=== PATIENT | female | born 1990 | race Caucasian/White ===

== ENCOUNTER 2019-07-31 11:45 | Inpatient (IN) ==
[2019-07-31] MEDS ORDERED: BUTORPHANOL 2 MG/ML VIAL IV PRN (11:53)
[2019-07-31] MEDS ORDERED: ONDANSETRON 4 MG/2 ML VIAL IV PRN ×2 (11:53→22:08)
[2019-07-31] MEDS ORDERED: LACTATED RINGERS 1,000 ML IV SCH (12:00)
[2019-07-31] MEDS ORDERED: OXYTOCIN/LR 20 UNIT/1,000 ML BAG IV SCH (12:00)
[2019-07-31 12:37] LABS: Basophils # 0.1 10*3/uL (0.0-0.2); Basophils % 0.5 % (0.0-0.8); Eosinophils # 0.3 10*3/uL (0.0-0.87); Eosinophils % 3.5 % (0.00-10.9); Hematocrit 36.5 VOL% (35.7-47.0); Hemoglobin 12.4 GM/DL (12.0-16.0); Immature Granulocytes % 0.4 %; Immature Granulocytes Absolute 0.04 #; Lymphocytes # 1.3 10*3/uL (1.4-4.0); Lymphocytes % 14.5 % (21.3-54.2); Mean Corpuscular Volume 93.6 FL (87-102); Mean Platelet Volume 10.6 FL (9.6-12.0); Monocytes % 7.2 % (1.7-12.7); Neutrophils % 73.9 % (38.7-73.9); Platelet Count 215 T/CUMM (130-400); Red Cell Distribution Width 13.6 % (9.3-17.3); White Blood Count 9.2 T/CUMM (4-12)
[2019-07-31] MEDS ORDERED: FAMOTIDINE 20 MG/2 ML VIAL IV ONE (12:55)
[2019-07-31] MEDS ORDERED: diphenhydrAMINE 50 MG/1 ML VIAL IV PRN ×2 (12:55)
[2019-07-31] MEDS ORDERED: ePHEDrine 50 MG/ML AMP IV PRN (12:55)
[2019-07-31] MEDS ORDERED: PROMETHAZINE 25 MG/1 ML VIAL IM PRN (12:55)
[2019-07-31] MEDS ORDERED: CITRIC ACID/SODIUM CITRATE 30 ML UDCUP PO ONE (12:55)
[2019-07-31] MEDS ORDERED: LACTATED RINGERS 1,000 ML IV ONE (12:55)
[2019-07-31] MEDS ORDERED: NALOXONE 0.4 MG/ML VIAL IV PRN (12:55)
[2019-07-31] MEDS ORDERED: fentaNYL 2 MCG/ROPIV 0.2% EPID 100 ML EPIDURAL SCH (13:00)
[2019-07-31 14:23] LABS: Apearance,Urine CLEAR (Clear); Bilirubin,Urine Negative (Negative); Blood, Urine Negative (Negative); Glucose,Urine (UA) Negative (Negative); Ketones,Urine Negative (Negative); Mucus,Urine Many /LPF (Occasional); Nitrite,Urine Negative (Negative); Protein,Urine Negative; RBC,Urine <1 /HPF (0-4); Squamous Epithelial Cell,Urine Occasional /HPF (0-10); Urine Color Yellow (Yellow); Urine Specific Gravity 1.016 (1.001-1.035); Urine Urobilinogen < 2.0 EU/DL (0.2-1.0); WBC,Urine 1 /HPF (0-6)
[2019-07-31] MEDS ORDERED: LIDOCAINE 1% 50 ML VIAL ONE (19:21)
[2019-07-31] MEDS ORDERED: CARBOPROST TROMETHAMINE 250 MCG/ML AMP IM ONE (19:22)
[2019-07-31] MEDS ORDERED: METHYLERGONOVINE 0.2 MG/1 ML AMP ONE (19:22)
[2019-07-31] MEDS ORDERED: miSOPROStoL 200 MCG TABLET ONE (19:22)
[2019-07-31] MEDS ORDERED: BISACODYL 10 MG SUPP RECTAL PRN (22:08)
[2019-07-31] MEDS ORDERED: IBUPROFEN 800 MG TABLET PO PRN (22:08)
[2019-07-31] MEDS ORDERED: MEASLES/MUMPS/RUBELLA VACCINE 0.5 ML VIAL SUBCUT ONE (22:08)
[2019-07-31] MEDS ORDERED: HYDROCORTISONE 2.5% RECTAL CREAM 30 GM TUBE TOP PRN (22:08)
[2019-07-31] MEDS ORDERED: LANOLIN 50% CREAM 0.3 OZ TUBE TOP PRN (22:08)
[2019-07-31] MEDS ORDERED: OXYTOCIN/LR 20 UNIT/1,000 ML BAG IV ONE (22:08)
[2019-07-31] MEDS ORDERED: DIPH/TET/ACEL PERT BOOSTER VACCINE 0.5 ML VIAL IM ONE (22:08)
[2019-07-31] MEDS ORDERED: BENZOCAINE 20%/MENTHOL 0.5% SPRAY 56 GM CAN TOP PRN (22:08)
[2019-07-31] MEDS ORDERED: WITCH HAZEL PADS 100/JAR TOP PRN (22:08)
[2019-07-31] MEDS ORDERED: RHO(D) IMMUNE GLOBULIN 300 MCG SYRINGE IM ONE (22:08)
[2019-07-31] MEDS ORDERED: ACETAMINOPHEN 325 MG TABLET PO PRN (22:08)
[2019-07-31] MEDS ORDERED: oxyCODONE/ACETAMINOPHEN 5-325 MG TABLET PO PRN ×2 (22:08)
[2019-08-01 04:44] LABS: Basophils % 0.3 % (0.0-0.8); Eosinophils # 0.2 10*3/uL (0.0-0.87); Eosinophils % 1.6 % (0.00-10.9); Hematocrit 30.6 VOL% (35.7-47.0); Hemoglobin 10.1 GM/DL (12.0-16.0); Immature Granulocytes % 0.4 %; Immature Granulocytes Absolute 0.05 #; Lymphocytes # 1.3 10*3/uL (1.4-4.0); Lymphocytes % 11.2 % (21.3-54.2); Mean Corpuscular Volume 95.6 FL (87-102); Monocytes % 7.5 % (1.7-12.7); Platelet Count 167 T/CUMM (130-400); Red Cell Distribution Width 13.5 % (9.3-17.3); White Blood Count 11.4 T/CUMM (4-12)
[2019-08-01] MEDS: DOCUSATE SODIUM 100 MG CAPSULE PO SCH ×2 (08:55→21:05)
[2019-08-02 07:15] VITALS: BP 134/81
[2019-08-02] MEDS: DOCUSATE SODIUM 100 MG CAPSULE PO SCH (09:34)
== END 2019-08-02 13:25 | disposition home or self-care (01) | DRG 807 ==
LOC: N.LDOUT 11:45 → N.LD 11:48 → N.OB 08-01 00:33
PROVIDERS: ADMIT Obstetrics & Gynecology; ATTEND Obstetrics & Gynecology

== ENCOUNTER 2021-07-14 16:28 | Inpatient (IN) ==
[2021-07-14] MEDS ORDERED: ONDANSETRON 4 MG/2 ML VIAL IV PRN (17:10)
[2021-07-14] MEDS ORDERED: LIDOCAINE 1% 50 ML VIAL MISC INJ ONE (17:10)
[2021-07-14] MEDS ORDERED: BUTORPHANOL 2 MG/ML VIAL IV PRN (17:10)
[2021-07-14] MEDS ORDERED: MEPERIDINE 50 MG/1 ML VIAL IV PRN (17:10)
[2021-07-14] MEDS ORDERED: OXYTOCIN/LR 20 UNIT/1,000 ML BAG IV SCH (17:30)
[2021-07-14] MEDS ORDERED: LACTATED RINGERS 1,000 ML IV SCH (17:30)
[2021-07-14 17:40] LABS: Basophils % 0.2 % (0.0-0.8); Eosinophils % 0.3 % (0.00-10.9); Hematocrit 36.4 VOL% (35.7-47.0); Hemoglobin 11.9 GM/DL (12.0-16.0); Immature Granulocytes % 0.4 %; Immature Granulocytes Absolute 0.04 #; Lymphocytes # 1.6 10*3/uL (1.4-4.0); Lymphocytes % 15.5 % (21.3-54.2); Mean Corpuscular HGB Conc 32.7 GM/DL (32-36); Mean Corpuscular Volume 92.2 FL (87-102); Mean Platelet Volume 11.1 FL (9.6-12.0); Monocytes % 7.1 % (1.7-12.7); Neutrophils % 76.5 % (38.7-73.9); Platelet Count 238 T/CUMM (130-400); Red Blood Count 3.95 MC/CUMM (3.8-5.5); White Blood Count 10.1 T/CUMM (4-12)
[2021-07-14 17:54] LABS: Bilirubin,Direct 0.1 MG/DL (0.0-0.20)
[2021-07-14 18:02] LABS: Albumin 2.6 G/DL (3.4-5.0); Bilirubin,Total 0.8 MG/DL (0.20-1.00); Calcium 8.7 MG/DL (8.5-10.1); Potassium 3.6 MMOL/L (3.5-5.1); Total Protein 6.6 G/DL (6.4-8.2)
[2021-07-14 18:10] LABS: INR 0.9; PT Patient Result 9.8 SECS (10.5-12.0); Partial Thromboplastin Time 24.8 SECS (23.9-33.8)
[2021-07-14 18:28] LABS: Bacteria,Urine Occasional /HPF (Few); Bilirubin,Urine Negative (Negative); Blood, Urine Small mg/dL (Negative); Glucose,Urine (UA) Negative (Negative); Ketones,Urine Negative (Negative); Mucus,Urine Occasional /LPF (Occasional); Nitrite,Urine Negative (Negative); Protein,Urine Negative; RBC,Urine 1 /HPF (0-4); Squamous Epithelial Cell,Urine Occasional /HPF (0-10); Urine Appearance Slightly Hazy (Clear); Urine Color Yellow (Yellow); Urine Specific Gravity 1.015 (1.001-1.035)
[2021-07-14 18:54] LABS: Protein/Creatinine Ratio,Urine 0.1 RATIO
[2021-07-14] MEDS ORDERED: ONDANSETRON 4 MG/2 ML VIAL IV ONE (20:04)
[2021-07-14] MEDS ORDERED: hydrOXYzine HCL 25 MG/1 ML VIAL IM PRN (20:04)
[2021-07-14] MEDS ORDERED: NALOXONE 0.4 MG/ML VIAL IV PRN (20:04)
[2021-07-14] MEDS ORDERED: ePHEDrine 50 MG/ML VIAL IV PRN (20:04)
[2021-07-14] MEDS ORDERED: PROMETHAZINE 25 MG/1 ML VIAL IM ONE (20:04)
[2021-07-14] MEDS ORDERED: diphenhydrAMINE 50 MG/1 ML VIAL IV PRN ×2 (20:04)
[2021-07-14] MEDS ORDERED: CITRIC ACID/SODIUM CITRATE 30 ML UDCUP PO ONE (20:04)
[2021-07-14] MEDS ORDERED: FAMOTIDINE 20 MG/2 ML VIAL IV ONE ×2 (20:04→20:07)
[2021-07-14] MEDS ORDERED: LACTATED RINGERS 1,000 ML IV ONE (20:04)
[2021-07-14] MEDS ORDERED: fentaNYL 2 MCG/ROPIV 0.2% EPID 100 ML EPIDURAL SCH (20:30)
[2021-07-15] MEDS ORDERED: LIDOCAINE 1% 50 ML VIAL ONE (01:09)
[2021-07-15] MEDS ORDERED: CARBOPROST TROMETHAMINE 250 MCG/ML AMP IM ONE (01:10)
[2021-07-15] MEDS ORDERED: METHYLERGONOVINE 0.2 MG/1 ML AMP ONE (01:10)
[2021-07-15] MEDS ORDERED: miSOPROStoL 200 MCG TABLET ONE (01:10)
[2021-07-15] MEDS ORDERED: SODIUM CHLORIDE 0.9% 0 ML IV ONE (01:10)
[2021-07-15] MEDS ORDERED: TRANEXAMIC ACID 1,000 MG/10 ML VIAL ONE (01:10)
[2021-07-15 02:40] LABS: Cord Venous Blood HCO3 20.6 MMOL/L; Cord Venous Blood PCO2 41.8 MMHG; Cord Venous Blood PO2 24.6
[2021-07-15] MEDS ORDERED: oxyCODONE/ACETAMINOPHEN 5-325 MG TABLET PO PRN ×2 (05:51)
[2021-07-15] MEDS ORDERED: ACETAMINOPHEN 325 MG TABLET PO PRN (05:52)
[2021-07-15] MEDS ORDERED: OXYTOCIN/LR 20 UNIT/1,000 ML BAG IV ONE (06:45)
[2021-07-15] MEDS: DOCUSATE SODIUM 100 MG CAPSULE PO PRN ×2 (09:10→21:06)
[2021-07-15 14:11] LABS: Basophils % 0.2 % (0.0-0.8); Eosinophils % 0.4 % (0.00-10.9); Hematocrit 31.3 VOL% (35.7-47.0); Hemoglobin 10.4 GM/DL (12.0-16.0); Immature Granulocytes % 0.4 %; Immature Granulocytes Absolute 0.03 #; Lymphocytes # 1.3 10*3/uL (1.4-4.0); Lymphocytes % 15.2 % (21.3-54.2); Mean Corpuscular HGB Conc 33.2 GM/DL (32-36); Mean Corpuscular Volume 93.7 FL (87-102); Mean Platelet Volume 10.5 FL (9.6-12.0); Monocytes % 10.4 % (1.7-12.7); Neutrophils % 73.4 % (38.7-73.9); Platelet Count 160 T/CUMM (130-400); Red Blood Count 3.34 MC/CUMM (3.8-5.5); Red Cell Distribution Width 13.9 % (9.3-17.3); White Blood Count 8.4 T/CUMM (4-12)
[2021-07-15] MEDS ORDERED: BENZOCAINE 20%/MENTHOL 0.5% SPRAY 56 GM CAN TOP PRN (16:18)
[2021-07-15] MEDS: IBUPROFEN 800 MG TABLET PO PRN (18:39)
[2021-07-15] MEDS ORDERED: ACETAMINOPHEN 500 MG TABLET PO PRN (23:08)
[2021-07-16] MEDS: IBUPROFEN 800 MG TABLET PO PRN (03:35)
[2021-07-16 08:35] VITALS: BP 122/76
[2021-07-16] MEDS: DOCUSATE SODIUM 100 MG CAPSULE PO PRN (08:55)
[2021-07-16] MEDS ORDERED: RHO(D) IMMUNE GLOBULIN 300 MCG SYRINGE IM ONE (10:50)
== END 2021-07-16 13:40 | disposition home or self-care (01) | DRG 806 ==
LOC: N.LD 16:28 → N.OB 07-15 05:24
PROVIDERS: ADMIT Obstetrics & Gynecology; ATTEND Obstetrics & Gynecology